=== PATIENT | female | born 2000 | race Caucasian/White ===

== ENCOUNTER 2020-12-14 17:33 | Emergency (ER) | payer BC ==
[~2020-12-14] VITALS: Ht 177.8 cm; Wt 63.0 kg
[2020-12-14 18:16] VITALS: BP 121/73
== END 2020-12-14 19:28 | disposition home or self-care (01) ==
LOC: ER 17:33
DX: S61.012A Laceration without foreign body of left thumb without damage to nail, initial encounter (principal); W25.XXXA Contact with sharp glass, initial encounter; Y93.89 Activity, other specified; Y92.018 Other place in single-family (private) house as the place of occurrence of the external cause
CPT/HCPCS: 29130; 99283; Z7610

== ENCOUNTER 2021-05-03 15:53 | Emergency (ER) | payer BC ==
[~2021-05-03] VITALS: Ht 177.8 cm; Wt 61.3 kg
[2021-05-03 16:24] VITALS: BP 116/65
== END 2021-05-03 17:28 | disposition left against medical advice (07) ==
LOC: ER 15:53
DX: Z53.21 Procedure and treatment not carried out due to patient leaving prior to being seen by health care provider (principal)